=== PATIENT | female | born 1965 | race Caucasian/White ===

== ENCOUNTER 2024-07-23 11:29 | Day surgery (SDC) | payer OTHER, SELFPAY ==
[2024-07-23] VITALS (8 sets, daily range): BP systolic 131–148; BP diastolic 69–82; PULSE 65–71; RESP 16–20; TEMP 36–37.5; O2SAT 98–100
[2024-07-23] MEDS: Lactated Ringers 1,000 ML 15 ML IV (12:11)
--- NOTE | 2024-07-23 12:25 | PRE.ANES_ITS ---
ASA Classification* ASA Classification ASA Classification: 1 Assessment & Plan Anesthesia* Anesthesia Assessment Anesthesia Assessment: Discussed sedation and/or anesthesia options, risks, benefits, and alternatives with patient/parents/legal guardian/POA. Questions invited. The patient/parents/legal guardian/POA seems to understand and agrees to proceed with anesthesia plan. Reviewed the physical assessment, medical history, allergy history and patient home medications list prior to surgery/procedure/anesthetic and documented any changes. Performed airway and anesthesia risk assessments. Anesthesia Type Anesthesia Type: MAC and Block (Postoperative pain block was discussed with the patient. She wants to hold off for now.) History Source History Obtained from:: Patient and Chart Anesthesia Focused Assessment* Temperature: 99.5 F Pulse Rate: 68 Blood Pressure: 131/82 Respiratory Rate: 16 Pulse Ox: 100 Oxygen Delivery Method: Room Air Airway Assessment Mouth opens: >3 cm Mallampati Score: IV Teeth Condition: Intact Neck Range of motion (ROM): Limited ROM (slight decrease in extension) Focused Labs Anesthesia Preop lab: CBC CHEMISTRY COAG Pre-Assessment Diagnosis/Proposed Procedure Planned Operative Procedure(s): (L) Cheilectomy of the left foot. Anesthesia History Anesthesia History - terrapin fisher: Anesthesia History - terrapin fisher Hx Hospitalization No 07/12/24 08:30 Any Problems With Anesthesia No 07/12/24 08:30 Cholinesterase deficiency No 07/12/24 08:30 You/Your Family Experience No 07/12/24 08:30 fever (hyperthermia) with Relationship Recent Exposure to Contagious Disease Does patient have nerve No 07/12/24 08:30 stimulator Patient instructed to have device shut off --Does patient have Pacemaker No 07/23/24 11:59 or ICD? When Was Last Pacemaker Check QUESTION #4 FULL TEXT: You/Your Family Experience fever (hyperthermia) with Anesthesia Last Oral Intake Last Oral intake: Last Oral Intake NPO since 23:00 07/23/24 11:59 Meds taken in AM with sips of No 07/23/24 11:59 water? Meds patient instructed to take am of surgery PONV PONV - terrapin fisher: PONV - terrapin fisher Female Yes 07/12/24 08:30 HX of Motion Sickness No 07/12/24 08:30 HX of N/V After Surgery No 07/12/24 08:30 Non-Smoker Yes 07/12/24 08:30 Duration of Surgery greater Yes 07/12/24 08:30 than 60 minutes Number of Risk Factors 3 07/12/24 08:30 PONV Score Moderate Risk 07/12/24 08:30 Height & Weight Height & Weight: Anesthesia: Height & Weight Weight: 60.2 kg 07/23/24 11:59 Respiratory Assessment Respiratory Assessment - terrapin fisher: Respiratory Tract Infection Hx - terrapin fisher Hx Respiratory Tract Infection No 07/12/24 08:30 STOP Sleep Apnea STOP Sleep Apnea - terrapin fisher: STOP Sleep Apnea - terrapin fisher Hx Hypertension No 07/12/24 08:30 Hx Sleep Apnea No 07/12/24 08:30 CPAP BIPAP Do you snore loudly (louder No 07/12/24 08:30 than talking or can be heard Do you often feel tired/ No 07/12/24 08:30 fatigued/ sleepy during daytime? Has anyone observed you stop No 07/12/24 08:30 breathing during sleep? STOP Results Negative 07/12/24 08:30 QUESTION #5 FULL TEXT : Do you snore loudly (louder than talking or can be heard through closed doors)? Tobacco Use History Tobacco Use History - terrapin fisher: Tobacco Use History - terrapin fisher Tobacco Use Smoking Status Never smoker 07/12/24 08:30 Hx Tobacco Use No 07/12/24 08:30 Years Smoking Packs Smoked per Day Smoking Cessation Date was within the last 15 years Hx Smoking Cessation Date Hx Smoking Cessation Counseling Hematologic Medial History Hematologic Hx - terrapin fisher: Hematologic Medical Hx - rubber belt splicer Hx of Blood Transfusion No 07/12/24 08:30 Hx of Transfusion in last 3 No 07/12/24 08:30 Months Date of Last Transfusion (if within last 3 months) Ever experience any problems No 07/12/24 08:30 with transfusion(s)? Specify any problems Hx of Preganancy in last 3 No 07/12/24 08:30 Months Nurse Filling Out Transfusion MGRIFFITH 07/12/24 08:30 & Questions: Date: 07/12/24 07/12/24 08:30 Time: 08:31 07/12/24 08:30 Patient unable to answer at this time (ie. confused, unrespo /Reproduction History /Reproductive History - terrapin fisher: /Reproductive Hx- terrapin fisher Hx Now No 07/12/24 08:30 Gestational Age (in weeks): EDC: Hx Hx Para Hx Section SAB No 07/12/24 08:30 Active Medications Active Medications: Current Medications Generic Name Dose Route Start Last Admin Trade Name Freq PRN Reason Stop Dose Admin Cefazolin Sodium 2 gm/ N/A 20 mls @ 400 mls/hr 07/23/24 13:00 IV 07/23/24 13:02 INTRAOP ONE Lactated Ringer's 1,000 mls @ 15 mls/hr 07/23/24 11:45 07/23/24 12:11 IV 15 mls/hr .Q48H ASHWIN Administration PFSH Medical History Wears glasses Post-menopausal Non-smoker Home Medications ?Medication ?Instructions ?Recorded ?Last Taken ?Type cecpihesfrjg-dkmkwtnt-arow 1 tab PO DAILY 07/12/24 Unk nown History fumarate 18 mg-folic acid 400 mcg tablet (One Daily Women's) Allergy/AdvReac Type Severity Reaction Status Date / Time No Known Allergies Allergy Verified 07/23/24 11:59 Surgical History History of vein stripping History of colonoscopy Social History Smoking Status: Never smoker Review of Systems (Anesthesia) ROS Narrative System reviewed and no additional complaints, except as documented.
--- NOTE | 2024-07-23 12:45 | RAD_ITS ---
EXAM: Intraoperative fluoroscopic images. CLINICAL HISTORY: Chellectomy COMPARISON: None TECHNIQUE: Intraoperative imaging provided. 8 seconds of fluoroscopy. FINDINGS: Intraoperative fluoroscopic services. RAD/Foot 2 Views IMPRESSION: Intraoperative fluoroscopic services. Reading Location: [place] [id number]
--- NOTE | 2024-07-23 12:53 | DCINST_ITS ---
Discharge Instructions Diet Discharge Diet: No restrictions DC O2, CPAP, BIPAP needs Home O2 Discharge instructions: No Dressing / Incision Discharge Activity: May Not Drive (May return to driving once off of narcotic prescription) and May Shower (May shower but please utilize cast bag covering to keep all dressings clean, dry, and intact to the left foot) Weight Bearing Status: Weight bearing as tolerated (May remain full weightbearing as tolerated in surgical shoe to left foot) Keep extremity elevated above heart level: Left Leg (Elevate left lower extremity at all times of rest for postoperative edema control) Dressing / Incision Call your doctor if you observe: Fever of 101 or Higher, Shortness of breath, Chest pain, Calf discomfort and Uncontrolled pain Change Dressing in: do not change dressing Remove Dressing in: leave in place till F/U (Do not change dressing. Leave dressing in place and physician will change dressing at first postoperative appointment) Cleanse incision/area with: Do not get Incision Wet and Keep Dressing Clean & Dry (Keep all dressings clean, dry, and intact to the left foot. Please utilize cast bag when showering to maintain compliance) Follow Up Care Please Follow Up With: Sean Mansfield DPM When: Patient has first postoperative appointment with me in office early next week Test Results: Test results from this visit will be discussed in further detail at your follow- up appointment, if applicable. Discharge Plan Admission Attending Provider: Sean Mansfield Primary Care Provider: Bianca Alcantar Instructions Print Language: Kyrgyz Discharge Orders/Prescriptions Prescriptions: New doxycycline hyclate 100 mg capsule 100 mg PO DAILY Qty: 10 0RF oxycodone-acetaminophen 5-325 mg tablet 1 tab PO Q6H PRN (Reason: pain) 7 Days Qty: 28 0RF No Action One Daily Women's 18 mg iron- 400 mcg tablet 1 tab PO DAILY Referrals / Follow Up: Bianca Alcantar MD [Primary Care Provider] - Disposition Disposition (needs filled in before D/C Order can be placed): Home, Self Care
[2024-07-23] MEDS: Cefazolin 2 GM in Syringe IV (13:00)
--- NOTE | 2024-07-23 13:00 | BON_PTH ---
PATIENT: LASHAY AMIN [place] [facility] [place][id number] AGE/SX: 58/F ROOM: RE07/23/[address]: Dr. Sean Mansfield DPM : 1965 BED: DIS: 07/23/2024 SPEC #: [id number] RECD: 07/23/24 16:23 STATUS: LA REKilo #: [id number] ELLIOTT: 07/23/24 13:[address]: Sean Mansfield DEPT: SURGICAL PATHOLOGY RECD BY: Charu Rockwell ENTERED: 07/26/24 07:19 SP TYPE: Bone OTHR DR: Dr. Bianca Alcantar MD Tissues: Bone of foot, NOS Procedures: Decalcification bone/plaque Surgery Specimen Level IV HEADER OPERATION: Cheilectomy of left foot PRE-OP DIAGNOSIS: Bone spur of foot TISSUE SUBMITTED: A- Bone 1st metatarsal head, left foot MICROSCOPIC DIAGNOSIS A. Bone, left foot, first metatarsal head, excision: * Benign cartilage and bone with degenerative changes MICROSCOPIC DESCRIPTION Slides are reviewed. GROSS DESCRIPTION A. Received in formalin in a container labeled with the patient's name, date of , and bone first metatarsal head (left foot per req) are multiple white-kaba fragments of firm bone measuring 3.3 x 2.0 x 1.0 cm in aggregate. Sectioning reveals firm white-kaba surfaces with a minimal amount of attached soft tissue. Vinyl Top Installer sections are submitted in A1 following decalcification. [facility] 07-26-2024 CPT:[id number]
[2024-07-23] MEDS: Lidocaine 1% (20 ml mdv) 20 ML Vial (13:16)
[2024-07-23] MEDS: Bupivacaine Mpf 0.5% 30 ML VIAL (13:16)
--- NOTE | 2024-07-23 14:00 | RAD_ITS ---
EXAM: LEFT FOOT CLINICAL HISTORY: POSTOPERATIVE COMPARISON: MOBILE C-ARM IMAGES DATED 07/23/2024. TECHNIQUE: AP lateral and oblique. FINDINGS: Degenerative changes at the 1st metatarsophalangeal joint. Soft tissue swelling on the medial aspect of the foot. Ossicle adjacent to the metatarsophalangeal joint laterally. No dislocations or subluxations. RAD/Foot min 3 Views IMPRESSION: Postoperative findings. Degenerative changes of the 1st metatarsophalangeal joint. Reading Location: [place]
--- NOTE | 2024-07-23 14:03 | PCM.POST.ANE ---
Anesthesia: Postop Eval I Current Vital Signs Temperature: 98.7 F Pulse Rate: 67 Blood Pressure: 140/75 Respiratory Rate: 20 Pulse Ox: 98 Oxygen Delivery Method: Room Air Assessment Airway patent: Yes Spontaneous unlabored respirations: Yes Mental status: Awake and Calm nausea: No Vomiting: No Anesthesia Complication: No Fluid Hydration Crystalloid volume administer (ml): 900 Total IV fluid infused: 900 Progress Note Anesthesia document: Postop Eval 1 completed: Yes
--- NOTE | 2024-07-23 14:13 | PCM.OPRPT ---
Problems Associated Problem List Diagnoses (1) Hallux limitus of left foot: (2) Arthritis of first metatarsophalangeal (MTP) joint of left foot: (3) Pain in left foot: Operative Report (Standard) Operative Information Date of Procedure: 07/23/24 Pre-Operative Diagnosis: 1. Hallux limitus left foot 2. Primary osteoarthritis first metatarsophalangeal joint left foot 3. Pain left foot Post-Operative Diagnosis: 1. Hallux limitus left foot 2. Primary osteoarthritis first metatarsophalangeal joint left foot 3. Pain left foot Surgery/Procedure Performed: 1. Cheilectomy first metatarsophalangeal joint left foot point of sale associate: Yes Compliance Representative: Dr. Lamonte Guan, DPM PGY-2 Tasks completed by admissions assistant: Opening & closing, Dissecting tissue, Removing tissue and Retracting Type of Anesthesia: Local (20 cc 1% lidocaine plain and 0.5% Marcaine plain) and MAC RN Documented Start/Stop Times: Operation Date: 07/23/24 13:00 Case Time Into Pre-Op 07/23/24 11:35 Out of Pre-Op 07/23/24 12:52 Anesthesia Start 07/23/24 12:54 Into Room 07/23/24 12:54 Procedure Start 07/23/24 13:15 Procedure End 07/23/24 13:54 Anesthesia End 07/23/24 13:58 Out of Room 07/23/24 13:58 Into Recovery 07/23/24 14:00 Procedure Start Time: 13:15 Procedure Stop Time: 13:54 Select all DRAINS/GRAFTS/IMPLANTS that apply: None Estimated Blood Loss: < 2mL Specimen collected: Yes Description of specimen(s) removed: Bone first metatarsal head left foot Description of surgery: HPI/indication: Patient is a 58-year-old female who presented to office citing deformity of the left first metatarsophalangeal joint. She states that she has pain ambulating in certain shoe gear with main complaint of ill fitting shoe gear secondary to the deformity at the dorsomedial aspect of the first MTPJ. She states that the deformity has been present for a few years and she thought she was developing a bunion deformity. Radiographs were obtained in the office in March 2024 demonstrating no bunion deformity but rather severe osteoarthritis of the first MTPJ of the left foot. On examination she is noted to have less than 5 degrees range of motion but does not have pain in plantarflexion or dorsiflexion. Does have pain mostly with shoe gear or chronic irritation of the spring deformity. She stated she is interested at that time to have the deformity removed but does not really want a fusion. She did undergo offloading with orthotic and Apn's extension and did state that the conservative treatment does work for certain shoes however her shoes for work are difficult to wear due to that large bump causing continued pain. Following our discussion as stated above with the surgical procedures patient was not interested in infusion and elects for cheilectomy. Surgical succussion of the procedure was had in detail in addition to typical postoperative course. Patient would like to proceed forward with the surgical intervention as she continues to have limiting pain and significant symptoms despite nonsurgical care. Discussed the possible risks and benefits of the procedure. Discussed with the risks include but are not limited to the following: Pain, continued pain, complex regional pain syndrome (CRPS), deformity, continued deformity, recurrence, overcorrection, under correction, numbness/neuritis, scarring, swelling, poor cosmetic result, bleeding, need for further surgery/procedures, fracture, nonunion, delayed union, nonhealing/delayed healing, dehiscence, infection, blood clot, allergic reaction, transfer lesion, postoperative arthritis, weakness, shoe gear problems, inability to walk, inability to wear certain shoe gear, floating toe, contracted toe, deviated toe, stroke, heart attack, addiction to pain medication, loss of function, loss of limb, loss of life. Patient expresses understanding of these and was able to repeat these back. Patient does wish to proceed forward with the surgical intervention and consent forms were signed and patient's free will. No guarantees were given. No promises were made. All diagnostic data was reviewed prior to entering the OR. Operative limb was signed prior to entering OR. She was set to undergo cheilectomy at [facility] on 07/23/2024. Procedure: Under mild sedation patient was brought into the operating placed on the table in supine position. Patient was secured to table with safety belt. Following induction of IV anesthetic a blanket bump was placed under the left hip and the left foot was elevated via a blanket bump. A pneumatic ankle tourniquet was then placed about the patient's left ankle. A local anesthetic block was then performed about the midshaft of the first metatarsal and Lopez block fashion consisting of 10 cc of a one-to-one mixture of 1% lidocaine plain and 0.5% Marcaine plain. The foot was then scrubbed, prepped, and draped in the usual aseptic manner. An Esmarch bandage was utilized to exsanguinate the left foot, the left foot was then elevated and the pneumatic ankle tourniquet was inflated to 250 mmHg. At this time attention was directed to the left foot where fluoroscopic imaging was obtained demonstrating arthritic deformity of the first metatarsophalangeal joint with dorsal exostosis/spurring consistent with the patient's preoperative deformity. Attention was then directed to the dorsal aspect of the first metatarsophalangeal joint where a linear incision was made overlying the distal aspect of the first metatarsal and extended distally onto the base of the proximal phalanx utilizing a #15 blade. Incision was deepened via sharp and blunt dissection. Care was taken to identify and retract all vital neurovascular structures and protected throughout the duration of this case. The extensor hallucis longus (EHL) tendon was identified and freed and retracted laterally and protected throughout the duration of this case. The capsular tissue was identified and transected linearly and reflected medial and lateral exposing the head of the first metatarsal in addition to the significant arthritic deformity, dorsal exostosis/spur. Utilizing a sagittal saw the spur was resected from the first metatarsal head and passed from the operative field to the table in total. Specimen was collected consisting of this exostosis and sent to pathology for analysis. The joint/head of the first metatarsal underwent remodeling utilizing the sagittal saw, bone rasp, and rongeur to remove small portions of remaining exostosis and smooth this portion of bone. Attention was then directed to the base of the proximal phalanx where some arthritic deformity secondary to phalangeal lipping was removed utilizing a rongeur and smoothed with a bone rasp. Site was then flushed with copious amounts of normal sterile saline. Joint was examined noting to have no remaining rough portions with deformity reduced/corrected. The head of the first metatarsal was then examined noting healthy appearing cartilage centrally and laterally with only a small portion of cartilaginous defect at the dorsal medial aspect. Following resection of the deformity there is noted improved motion of the first MTPJ achieving 10 degrees range of motion. Fluoroscopy was then utilized demonstrating resection of the osseous deformity. Site was then again flushed with copious amounts of normal sterile saline. Capsule was repaired utilizing 4-0 Vicryl in simple interrupted fashion. Deep tissue was then closed utilizing 4-0 Vicryl in simple interrupted fashion. Subcuticular closure was then performed utilizing 4-0 Monocryl. The skin was then reapproximated utilizing 3-0 Prolene in simple interrupted fashion. At this time the pneumatic ankle tourniquet was deflated and a prompt hyperemic response was noted to the digits of the left foot. A postoperative block was then performed about the proximal aspect of the first metatarsal in Lopez fashion consisting of 10 cc of a one-to-one mixture of 1% lidocaine plain and 0.5% Marcaine plain incision site was then dressed with Betadine soaked Adaptic, 4 x 4 gauze, Kerlix, and a 4 inch Papi wrap rolled onto the foot. Patient tolerated the procedure and anesthesia well and was transported to PACU with vital signs stable and vascular status intact to the left foot. She was instructed to continue to follow all postoperative instructions as outlined. Discussed this includes continuing to elevate her foot at all times of rest for postoperative edema control. She is to keep all dressings clean, dry, and intact to the left foot and utilize cast bag when showering to maintain compliance. She is permitted to ambulate in the left foot but only in surgical shoe. Discussed these instructions with patient and prior to surgical intervention. She will continue to follow with me in office for postoperative care with appointment early next week. Surgical Findings: Arthritic deformity first metatarsophalangeal joint with dorsal exostosis Complications Complications: No Admit VTE Documentation VTE Present on Admission: No VTE Mechan Device Prophylaxis: SCD's VTE Pharm Prophylaxis ordered?: No Reason prophylaxis not ordered: Treatment Not Indicated
--- NOTE | 2024-07-23 16:39 | POSTOPAN2_ITS ---
Anesthesia Postop Eval I Sum Postop Eval Completion status Anesthesia document: Postop Eval 1 completed: Yes Anesthesia Postop Eval I Summary Anesthesia Postop Eval I Summary: Anesthesia Postop Eval I: Assessment Summary Airway patent Yes 07/23/24 14:04 [email or web address] Spontaneous unlabored Yes 07/23/24 14:04 [email or web address] [email or web address] respirations Mental status Awake,Calm 07/23/24 14:04 [email or web address] nausea No 07/23/24 14:04 [email or web address] [email or web address] Vomiting No 07/23/24 14:04 [email or web address] [email or web address] Anesthesia Postop Eval I: Fluid Summary Crystalloid volume administer 900 07/23/24 14:04 [email or web address] (ml) Colloids volume administered ( ml) Blood Product volume administered (ml) Total IV fluid infused 900 07/23/24 14:04 [email or web address] Anesthesia Postop Eval I: Summary Notes Anesthesia Complication No 07/23/24 14:04 [email or web address] Anesthesia Complication Comment: Post-operative progress note Anesthesia: Postop Eval II Evaluation Mental status: Awake and Calm Pain Level: 1 nausea: No Vomiting: No Complications Anesthesia Complication: No
--- NOTE | 2024-07-23 16:39 | PCM.POSTANE2 ---
Anesthesia Postop Eval I Sum Postop Eval Completion status Anesthesia document: Postop Eval 1 completed: Yes Anesthesia Postop Eval I Summary Anesthesia Postop Eval I Summary: Anesthesia Postop Eval I: Assessment Summary Airway patent Yes 07/23/24 14:04 DEATH CLEARANCE [email or web address] Spontaneous unlabored Yes 07/23/24 14:04 DEATH CLEARANCE [email or web address] respirations Mental status Awake,Calm 07/23/24 14:04 DEATH CLEARANCE [email or web address] nausea No 07/23/24 14:04 DEATH CLEARANCE [email or web address] Vomiting No 07/23/24 14:04 DEATH CLEARANCE [email or web address] Anesthesia Postop Eval I: Fluid Summary Crystalloid volume administer 900 07/23/24 14:04 DEATH CLEARANCE [email or web address] (ml) Colloids volume administered ( ml) Blood Product volume administered (ml) Total IV fluid infused 900 07/23/24 14:04 DEATH CLEARANCE [email or web address] Anesthesia Postop Eval I: Summary Notes Anesthesia Complication No 07/23/24 14:04 DEATH CLEARANCE [email or web address] Anesthesia Complication Comment: Post-operative progress note Anesthesia: Postop Eval II Evaluation Mental status: Awake and Calm Pain Level: 1 nausea: No Vomiting: No Complications Anesthesia Complication: No
== END 2024-07-23 14:59 | disposition home or self-care (01) ==
LOC: SDC 12:36 → AC 12:53
PROVIDERS: PCP Internal Medicine; Referring Provider Student in an Organized Health Care Education/Training Program; Visit Provider Student in an Organized Health Care Education/Training Program
PROC: (CPT 28289; principal; 2024-07-23 12:45)
DX: M20.5X2 Other deformities of toe(s) (acquired), left foot (principal); M19.072 Primary osteoarthritis, left ankle and foot; M77.52 Other enthesopathy of left foot and ankle
CPT/HCPCS: 28289; 01480; 73620; 73630; 76000; 88305; 88311